=== PATIENT | female | born 1980 | race African-American/Black ===

== ENCOUNTER 2016-11-15 04:50 | Emergency (ER) | payer OTHER ==
[~2016-11-15 04:50] MED LIST: LORA-474 PO; REGL10TA5 PO; ROBA500T PO; ZANTTAB PO; ZOFR4TAB PO
[2016-11-15 04:51] VITALS: BP 149/90; PULSE 81; RESP 16; TEMP 98.1; O2SAT 100
[2016-11-15] MEDS ORDERED: SODIUM CHLOR 0.9% 1000 ML INJ 1,000 ML IV ONE (05:05)
--- NOTE | 2016-11-15 05:11 | PD ---
HPI Chief Complaint: Headache Time Seen by Provider: 05:05 Travel History International Travel<30 days: No Contact w/Intl Traveler<30days: No Traveled to known affect area: No History of Present Illness HPI Patient is a 35-year-old female presenting to the emergency department for evaluation of a headache. Patient states she's had a headache for 3 days, it is frontal in nature, throbbing and accompanied by photophobia and mild nausea. Patient states that she normally takes Tylenol or ibuprofen and the headache is alleviated. She states this time the matter what she takes a headache returns and is never completely relieved. She reports feeling dizzy at work last night which is also not consistent with her prior headaches. She denies any nasal congestion, cough, fever, chills, neck pain, chest pain or shortness of breath. Patient states the pain is 8 out of 10 and describes it as throbbing.. PFSH Past Medical History Anemia: Yes Hypertension: Yes ?: Not Social History Alcohol Use: Yes Tobacco Use: No Substance Use: No Allergies-Medications (Allergen,Severity, Reaction): Coded Allergies: No Known Allergies (Unverified , 11/15/16) Reported Meds & Prescriptions Reported Meds & Active Scripts Active Ativan (Lorazepam) 1 Mg Tab 1 Mg PO BID PRN Reglan (Metoclopramide HCl) 10 Mg Tab 10 Mg PO QID Zantac 150 Maximum Strength (Ranitidine HCl) 150 Mg Tab 150 Mg PO DAILY Zofran (Ondansetron HCl) 4 Mg Tab 4 Mg PO Q12HR PRN Robaxin (Methocarbamol) 500 Mg Tab 1,000 Mg PO BID Review of Systems Except as stated in HPI: all other systems reviewed are Neg General / Constitutional: No: Fever, Chills Eyes: Positive: Photophobia, No: Blurred Vision HENT: Positive: Headaches Cardiovascular: No: Chest Pain or Discomfort Respiratory: No: Shortness of Breath Gastrointestinal: Positive: Nausea, No: Abdominal Pain Neurologic: Positive: Dizziness, Headache, No: Focal Abnormalities, Coordination Problem, Slurred Speech, Sensory Disturbance Physical Exam Narrative GENERAL: Obese, well-developed, alert female. Resting comfortably in no acute distress. SKIN: Warm and dry. HEAD: Atraumatic. Normocephalic. EYES: Pupils equal and round. No scleral icterus. No injection or drainage. ENT: No nasal bleeding or discharge. Mucous membranes pink and moist. NECK: Trachea midline. No JVD. CARDIOVASCULAR: Regular rate and rhythm. RESPIRATORY: No accessory muscle use. Clear to auscultation. Breath sounds equal bilaterally. GASTROINTESTINAL: Abdomen soft, non-tender, nondistended. Hepatic and splenic margins not palpable. MUSCULOSKELETAL: Extremities without clubbing, cyanosis, or edema. No obvious deformities. NEUROLOGICAL: Awake and alert. No obvious cranial nerve deficits. Motor grossly within normal limits. Five out of 5 muscle strength in the arms and legs. Normal speech. PSYCHIATRIC: Appropriate mood and affect; insight and judgment normal. Data Data Last Documented VS Vital Signs Date Time Temp Pulse Resp B/P (MAP) Pulse Ox O2 Delivery O2 Flow Rate FiO2 11/15/16 04:51 98.1 81 16 149/90 (109) 100 Room Air Orders Orders Ct Brain W/O Iv Contrast(Rout) (11/15/16 05:05) Sodium Chloride 0.9% Flush (Ns Flush) (11/15/16 05:15) Ketorolac Inj (Toradol Inj) (11/15/16 05:15) Prochlorperazine Inj (Compazine Inj) (11/15/16 05:15) Diphenhydramine Inj (Benadryl Inj) (11/15/16 05:15) Sodium Chlor 0.9% 1000 Ml Inj (Ns 1000 M (11/15/16 05:05) Ed Urine Pregnancytest Poc (11/15/16 05:05) Ketorolac Inj (Toradol Inj) (11/15/16 05:45) Diphenhydramine Inj (Benadryl Inj) (11/15/16 05:45) Prochlorperazine Inj (Compazine Inj) (11/15/16 05:45) MDM Medical Decision Making Medical Screen Exam Complete: Yes Emergency Medical Condition: Yes Interpretation(s) Vital Signs Date Time Temp Pulse Resp B/P (MAP) Pulse Ox O2 Delivery O2 Flow Rate FiO2 11/15/16 04:51 98.1 81 16 149/90 (109) 100 Room Air Differential Diagnosis Migraine versus cluster headache versus tension-type headache versus less likely CVA versus other Narrative Course Patient presented for evaluation of a headache that has been ongoing for several days accompanied by an episode of dizziness last night at work. Patient is neurologically intact, no focal deficits noted on exam. Imaging ordered and pending, and occasions ordered to attempt to abort headache ordered. Patient's vital signs are stable. CT scan of the brain which was read by the radiologist shows no acute abnormality. 0620 patient was reassessed, she reports improvement in her headache. Patient is encouraged to follow-up with her primary doctor, maintain adequate fluid intake, avoid triggers. She was encouraged return to emergency department immediately for any new or worsening symptoms. Patient verbalized understanding of these instructions. Patient is stable for discharge. Diagnosis Primary Impression: Headache Qualified Codes: R51 - Headache Referrals: Primary Care Physician 2 days Patient Instructions: Acute Headache (ED), General Instructions Additional Instructions: Follow-up with her primary doctor Return to emergency department for any new or worsening symptoms Maintain adequate fluid intake Med/Other Pt SpecificInfo: No Change to Meds Disposition: 01 DISCHARGE HOME Condition: Stable Adelaide Clark Nov 15, 2016 05:11
[2016-11-15] MEDS ORDERED: PROCHLORPERAZINE INJ 10 MG/2 ML VIAL IVP ONE (05:15)
[2016-11-15] MEDS ORDERED: KETOROLAC TROMETHAMINE 30 MG/ML (IVP) VIAL IVP ONE (05:15)
[2016-11-15] MEDS ORDERED: SODIUM CHLORIDE 0.9% FLUSH 10 ML FLUSH IVF PRN (05:15)
[2016-11-15] MEDS ORDERED: diphenhydrAMINE HCL 50 MG/ML VIAL IVP ONE (05:15)
[2016-11-15] MEDS ORDERED: diphenhydrAMINE HCL 50 MG/ML VIAL IM ONE (05:45)
[2016-11-15] MEDS ORDERED: PROCHLORPERAZINE INJ 10 MG/2 ML VIAL IM ONE (05:45)
[2016-11-15] MEDS ORDERED: KETOROLAC TROMETHAMINE 60 MG/2 ML (IM) VIAL IM ONE (05:45)
--- NOTE | 2016-11-15 06:11 | RADRPT ---
EXAM DATE/TIME: 11/15/2016 05:55 [facility] COMPARISON: CT BRAIN W/O CONTRAST, October 29, 2016, 20:41. INDICATIONS : Cephalgia. RADIATION DOSE: 45.29 CTDIvol (mGy) MEDICAL HISTORY : Hypertension. SURGICAL HISTORY : None. ENCOUNTER: Initial ACUITY: 3 days PAIN SCALE: 10/10 LOCATION: cranial TECHNIQUE: Multiple contiguous axial images were obtained of the head. Using automated exposure control and adj ustment of the mA and/or kV according to patient size, radiation dose was kept as low as reasonably a chievable to obtain optimal diagnostic quality images. DICOM format image data is available electro nically for review and comparison. FINDINGS: CEREBRUM: The ventricles are normal for age. No evidence of midline shift, mass lesion, hemorrhage or acute in farction. No extra-axial fluid collections are seen. POSTERIOR FOSSA: The cerebellum and brainstem are intact. The 4th ventricle is midline. The cerebellopontine angle i s unremarkable. EXTRACRANIAL: The visualized portion of the orbits is intact. SKULL: The calvaria is intact. No evidence of skull fracture. CONCLUSION: No acute intracranial abnormality. Basim Vargas MD on November 15, 2016 at 6:09 Board Certified Radiologist. This report was verified electronically.
[2016-11-15 07:00] VITALS: BP 140/81; PULSE 83; RESP 16; TEMP 97.8; O2SAT 98
[2016-11-15 08:52] VITALS: BP 140/81
== END 2016-11-15 08:53 | disposition home or self-care (01) ==
LOC: NEPD 04:50
DX: R51 Headache (principal); I10 Essential (primary) hypertension; R42 Dizziness and giddiness; D64.9 Anemia, unspecified
CPT/HCPCS: 70450; 84703; 96372; 99285; J0780; J1200; J1885

== ENCOUNTER 2017-11-23 11:22 | Inpatient (IN) ==
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
[2017-11-23] MEDS ORDERED: Acetaminophen 325 MG Tablet PO PRN (21:31)
[2017-11-23] MEDS: Topiramate 25 MG Tablet PO SCH (22:14)
[2017-11-23] MEDS: Aspirin 325 MG Tablet PO SCH (22:14)
[2017-11-24 00:07] VITALS: O2SAT 100
[2017-11-24 00:12] LABS: Folate 7.3 ng/mL (3.1-17.5); Free T4 (Free Thyroxine) 1.02 ng/dL (0.76-1.46); Thyroid Stimulating Hormone 6.34 uIU/mL (0.358-3.740)
[2017-11-24 07:53] LABS: Baso % (Auto) 0.6 % (0.0-2.0); Eos % (Auto) 0.7 % (0.0-4.0); Hematocrit 23.7 % (35.0-46.0); Hemoglobin 7.7 gm/dL (11.6-15.3); Lymph # (Auto) 1.5 th/mm3 (1.0-4.8); Lymph % (Auto) 27.7 % (9.0-44.0); Mean Corpuscular HGB Conc 32.3 % (32.0-36.0); Mean Corpuscular Hemoglobin 27.2 pg (27.0-34.0); Mean Corpuscular Volume 84.1 fL (80.0-100.0); Mean Platelet Volume 9.9 fL (7.0-11.0); Mono # (Auto) 0.5 th/mm3 (0.0-0.9); Mono % (Auto) 8.9 % (0.0-8.0); Neut # (Auto) 3.4 th/mm3 (1.8-7.7); Neut % (Auto) 62.1 % (16.0-70.0); Platelet Count 201 th/mm3 (150-450); Red Blood Count 2.82 mil/mm3 (4.00-5.30); Red Cell Distribution Width 14.4 % (11.6-17.2); White Blood Count 5.5 th/mm3 (4.0-11.0)
[2017-11-24 07:58] VITALS: RESP 18
[2017-11-24] MEDS ORDERED: Influenza (Quadrivalent) Vaccine 0.5 ML Syringe IM ONE (08:00)
[2017-11-24] MEDS: Aspirin 325 MG Tablet PO SCH (08:10)
[2017-11-24] MEDS: Topiramate 25 MG Tablet PO SCH (08:10)
[2017-11-24 08:13] LABS: Anion Gap 6 meq/L (5-15); Blood Urea Nitrogen 10 mg/dL (7-18); Carbon Dioxide 25.7 meq/L (21.0-32.0); Chloride 109 meq/L (98-107); Glomerular Filtration Rate Greater Than 89 mL/min (>89); Glucose,Random 96 mg/dL (74-106); Potassium 3.6 meq/L (3.5-5.1); Sodium 141 meq/L (136-145)
[2017-11-24 08:15] LABS: Cholesterol 105 mg/dL (120-200); Triglycerides 77 mg/dL (42-150)
[2017-11-24 08:17] LABS: Chol/HDL Ratio 3.76 Ratio; HDL Cholesterol 27.9 mg/dL (40.0-60.0); LDL Cholesterol,Calculated 62 mg/dL (0-99)
[2017-11-24] MEDS ORDERED: Gadobutrol PF 7.5 MMOL/7.5 ML Vial (for RAD) IV.SIG ONE (09:49)
--- NOTE | 2017-11-24 10:12 | MR ---
EXAM DATE: 11/24/2017 9:23 AM EDT AGE/SEX: 36 years / Female INDICATIONS: Cephalgia. Right side numbness. CLINICAL DATA: This is the patient's initial encounter. Patient reports that signs and symptoms have been present for 1 day and indicates a pain score of 5/10. MEDICAL/SURGICAL HISTORY: None. None. COMPARISON: [facility], CTA HEAD W CONTRAST W 3D, 11/23/2017. [facility], CT HEAD W/O CONTRAST, 11/23/2017 . . TECHNIQUE: Multiplanar, multisequence examination of the brain was performed without and with 14 ml O mniscan (gadodiamide) contrast as a single exam dose. FINDINGS: Cerebrum: The ventricles are normal for age. No evidence of midline shift, mass lesion, hemorrhage or acute infarction. No extraaxial fluid collections are seen. The pituitary gland and suprasellar cistern are normal in configuration. White Matter: No significant signal abnormalities are seen in the white matter. Posterior Fossa: The cerebellum and brainstem are intact. The 4th ventricle is midline. The cerebel lopontine angle is unremarkable. The cerebellar tonsils are normal in position. Diffusion Imaging: No focal areas of restricted diffusion are seen. No evidence of acute infarction . Extracranial: The visualized portions of the orbits and paranasal sinuses are unremarkable. Post Contrast: No abnormal areas of parenchymal or dural enhancement. No evidence of blood-brain ba rrier breakdown. CONCLUSION: 1. Negative MR Brain with and without contrast. Electronically signed by: Sena Hunter MD 11/24/2017 10:11 AM EDT
[2017-11-24 12:13] LABS: Hematocrit 29.6 % (35.0-46.0); Hemoglobin 9.5 gm/dL (11.6-15.3)
[2017-11-24 14:25] LABS: Hemoglobin A1c 5.8 % (4.3-6.0)
--- NOTE | 2017-11-24 15:02 | ECHRPT ---
Indication: CVA/TIA CONCLUSIONS The left ventricular systolic function is normal with an estimated ejection fraction in the range of 60-65%. Normal left ventricular size. Wall thickness is normal. No regional wall motion abnormalities are present. Mild thickening of the tricuspid valve leaflets. There is mild tricuspid valve regurgitation. The estimated pulmonary arterial pressure is 28.7 mmHg. BP: / HR: Rhythm: Sinus MEASUREMENTS (Male / Female) Normal Values Technical Quality:Good 2D ECHO LV Diastolic Diameter PLAX 5.1 cm 4.2 - 5.9 / 3.9 - 5.3 cm LV Systolic Diameter PLAX 3.0 cm IVS Diastolic Thickness 1.0 cm 0.6 - 1.0 / 0.6 - 0.9 cm LVPW Diastolic Thickness 1.0 cm 0.6 - 1.0 / 0.6 - 0.9 cm LV Relative Wall Thickness 0.4 RV Internal Dim ED PLAX 2.9 cm LVOT Diameter 2.1 cm LV Ejection Fraction MOD 4C 66.4 % LV Ejection Fraction 4C AL 67.3 % M-MODE Aortic Root Diameter MM 2.3 cm LA Systolic Diameter MM 3.5 cm LA Ao Ratio MM 1.5 AV Cusp Separation MM 1.9 cm DOPPLER AV Peak Velocity 163.0 cm/s AV Peak Gradient 10.6 mmHg LVOT Peak Velocity 126.0 cm/s LVOT Peak Gradient 6.4 mmHg AV Area Cont Eq pk 2.7 cm MV Area PHT 4.3 cm Mitral E Point Velocity 69.1 cm/s Mitral A Point Velocity 64.2 cm/s Mitral E to A Ratio 1.1 LV E' Lateral Velocity 7.4 cm/s Mitral E to LV E' Lateral Ratio 9.3 LV E' Septal Velocity 10.0 cm/s Mitral E to LV E' Septal Ratio 6.9 TR Peak Velocity 216.0 cm/s TR Peak Gradient 18.7 mmHg Right Atrial Pressure 10.0 mmHg Pulmonary Artery Systolic Pressu 28.7 mmHg Right Ventricular Systolic Press 28.7 mmHg PV Peak Velocity 89.6 cm/s PV Peak Gradient 3.2 mmHg FINDINGS LEFT VENTRICLE The left ventricular systolic function is normal with an estimated ejection fraction in the range of 60-65%. Normal left ventricular size. Wall thickness is normal. No regional wall motion abnormalities are present. RIGHT VENTRICLE Normal right ventricular size and systolic function. LEFT ATRIUM The left atrial size is normal. RIGHT ATRIUM The right atrial size is normal. ATRIAL SEPTUM Normal atrial septal thickness without atrial level shunting by limited color doppler interrogation. AORTA The aortic root and proximal ascending aorta are normal in size on limited imaging. MITRAL VALVE Structurally normal mitral valve. No mitral valve stenosis or regurgitation. AORTIC VALVE Trileaflet aortic valve. No aortic valve stenosis or regurgitation. TRICUSPID VALVE Mild thickening of the tricuspid valve leaflets. There is mild tricuspid valve regurgitation. The estimated pulmonary arterial pressure is 28.7 mmHg. PULMONARY VALVE No pulmonary valve regurgitation or stenosis. VESSELS The inferior vena cava is normal in size. PERICARDIUM No pericardial effusion. Jerry Key MD, FACC (Electronically Signed) Final Date:24 November 2017 15:01
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
[2017-11-24 15:38] VITALS: BP 132/68; TEMP 98.1
--- NOTE | 2017-11-24 15:48 | MB ---
cc: Zonia Martins MD DATE: 11/24/2017 REASON FOR CONSULTATION: Possible TIA. HISTORY OF PRESENT ILLNESS: A pleasant 36-year-old woman with a significant history of headaches since her late 20s. After of her last child, she gets migraines fairly frequently, especially around her menstrual cycle, but not daily. Usually takes [id number] medications. Has never been diagnosed with migraines and has never taken anything preventative. Her migraine was different yesterday to the point where she was dizzy, had some blurred vision and somebody told her she was slurring her words. She is back to baseline now, just feels a little tired. She has been walking around the hospital room without any difficulty, actually came out of the bathroom when I came in to see her. She was a dull tonus. She Had a CTA brain and neck, and CT without contrast of the brain, all really unremarkable, somewhat of a poor study I am told on the carotid. She was sent here for followup evaluation for Neurology. PHYSICAL EXAMINATION: VITAL SIGNS: Her current vitals are temperature is 98, pulse 73, respiratory rate 18, blood pressure 120/79. NECK: She has a left IJ, left neck no bruits. HEART: Regular. NEUROLOGIC: She is awake, alert. She is oriented, fluent. Pupils reactive. Visual ma full. Face is symmetrical. Tongue midline. Motor: No appreciable drift, no leg lag. Cerebellar is normal. DTRs are trace to 1+. Gait is normal. Sensory is normal. LABORATORY DATA: Reviewed. Her hemoglobin is 7.7, hematocrit 23.7, MCV is 84.1, RDW is 14.4. Chemistry: Calcium 8. Hemoglobin A1c is pending. Ammonia was 46, repeat is pending. B12 444. TSH 6.340, T4 was normal. Cholesterol 105, LDL 62, HDL 27.9, triglyceride 77. RPR pending. RADIOLOGICAL STUDIES: MRI of the brain was unremarkable. Labs, as you know, she is anemic, etiology to be determined. Some labs are still pending. She just had an EEG. We will get the results, but per downstream biomanufacturing technician, I discussed the study and looked like it was unremarkable, although I did not read that. She was started on topiramate yesterday, 25 mg b.i.d. Side effects were discussed with the patient. She seems to be tolerating it. IMPRESSION: Most likely complicated migraine, but certainly TIA. DIFFERENTIAL: Recommend continue Topamax 25 mg b.i.d. CBC with followup hemoglobins pending. Has a family member who has seizures, but the patient has never had a seizure. This sounds more migrainous in nature. Her workup is negative. Certainly abortive therapy such as the triptan sumatriptan, be initiated. She is feeling fine, certainly can be discharged from my perspective and can followup as an outpatient. Continue current care. MD TRACY Chan/katelyn , 12:14 PM , 12:23 PM
--- NOTE | 2017-11-24 16:22 | US ---
EXAM DATE: 11/24/2017 12:00 AM EDT AGE/SEX: 36 years / Female INDICATIONS: TIA. CLINICAL DATA: This is the patient's initial encounter. Patient reports that signs and symptoms have been present for 1 day and indicates a pain score of 10/10. MEDICAL/SURGICAL HISTORY: None. None. COMPARISON: No prior exams available for comparison. VELOCITY PARAMETERS: ICA/CCA Ratio: Right 0.8 , Left 0.8 ICA: Right 81 cm/sec, Left 101 cm/sec CCA: Right 103 cm/sec, Left 124 cm/sec ECA: Right 47 cm/sec, Left 65 cm/sec Vertebral: Right 35 cm/sec antegrade, Left 81 cm/sec antegrade FINDINGS: Right Carotid: No significant plaque is visualized.The waveforms are within normal limits. Left Carotid: No significant plaque is visualized. The waveforms are within normal limits. Other: None. CONCLUSION: Negative for hemodynamically significant carotid stenosis. Electronically signed by: Andrei Alan MD 11/24/2017 4:20 PM EDT
[2017-11-24 16:40] VITALS: PULSE 73
--- NOTE | 2017-11-25 09:15 | MG ---
cc: Zonia Martins MD EEG NUMBER: [id number]. REFERRING PHYSICIAN: Lucina. ROOM: 1501. Hyperventilation and photic done with good effort. Awake, drowsy, asleep, alert and oriented. CT negative. There is a family member with history of epilepsy. The patient came in with some headaches, dizziness on Topamax and aspirin now. DESCRIPTION OF RECORD: The patient has an overall background alpha of 8 Hz, 20-30 microvolts. Symmetrical background. Photic stimulation done at the beginning with a normal posterior driving response. EKG looks sinus. Hyperventilation was then performed. There is some myogenic artifact with good effort symmetrical background well organized. No evidence of any epileptiform features. EKG remains in sinus rhythm. IMPRESSION: Normal electroencephalogram without any epileptiform features. Clinical correlation. Zonia Martins MD DF/niharika , 07:54 AM , 07:59 AM
== END 2017-11-24 17:44 | disposition home or self-care (01) ==
LOC: NEDDLT 11:22 → N05 19:38
PROVIDERS: ADMIT Hospitalist; ATTEND Hospitalist